=== PATIENT | female | born 1965 | race Caucasian/White ===

== ENCOUNTER → 2019-05-21 14:18 | Outpatient (BNVA) | payer MEDICARE, MEDICAID, SELFPAY | PROVIDERS: Family Provider Family Medicine; PCP Family Medicine; Visit Provider Anesthesiology | DX: M54.41 Lumbago with sciatica, right side (principal); Z79.891 Long term (current) use of opiate analgesic | CPT/HCPCS: 99213; 99214 ==

== ENCOUNTER → 2019-09-17 12:58 | Outpatient (BNVA) | payer MEDICARE, MEDICAID, SELFPAY | PROVIDERS: Family Provider Family Medicine; PCP Family Medicine; Visit Provider Anesthesiology | DX: M54.41 Lumbago with sciatica, right side (principal); M54.9 Dorsalgia, unspecified; Z79.891 Long term (current) use of opiate analgesic | CPT/HCPCS: 99213; 99214 ==

== ENCOUNTER → 2019-09-20 15:58 | Outpatient (BNVA) | payer MEDICARE, MEDICAID, SELFPAY | PROVIDERS: Family Provider Family Medicine; PCP Family Medicine; Visit Provider Family Medicine | DX: E11.9 Type 2 diabetes mellitus without complications (principal); I10 Essential (primary) hypertension; M54.41 Lumbago with sciatica, right side; K21.9 Gastro-esophageal reflux disease without esophagitis | CPT/HCPCS: 80053; 80061; 83036 ==

== ENCOUNTER → 2019-11-03 09:53 | Outpatient (BNVA) | payer MEDICARE, MEDICAID, SELFPAY | PROVIDERS: Family Provider Family Medicine; PCP Family Medicine; Visit Provider Nurse Practitioner | DX: M54.41 Lumbago with sciatica, right side (principal); M54.9 Dorsalgia, unspecified; Z79.891 Long term (current) use of opiate analgesic | CPT/HCPCS: 99213 ==

== ENCOUNTER 2019-12-30 13:23 | Outpatient (CLI) | payer MEDICARE, MEDICAID, SELFPAY ==
--- NOTE | 2019-12-30 13:30 | USCV_ITS ---
Gia Carvajal Age: 54 Gender: F : 1965 Exam Date: 12/30/2019 13:37 Ordering Phys: Cami Christie MD Technologist: Karson Rojas Exam Location: [facility] [place] Indication: Tachycardia BP: 135 / 80 HR: 112 Rhythm: Sinus Technical Quality: Fair MEASUREMENTS (Male / Female) Normal Values 2D ECHO LV Diastolic Diameter PLAX 3.7 cm 4.2 - 5.9 / 3.9 - 5.3 cm LV Systolic Diameter PLAX 2.0 cm IVS Diastolic Thickness 0.8 cm 0.6 - 1.0 / 0.6 - 0.9 cm IVS Systolic Thickness 1.4 cm LVPW Diastolic Thickness 0.8 cm 0.6 - 1.0 / 0.6 - 0.9 cm LVPW Systolic Thickness 1.1 cm LVOT Diameter 1.6 cm LV Ejection Fraction 2D Teich 77.2 % LV Ejection Fraction MOD 2C 63.1 % LV Ejection Fraction 2C AL 64.7 % LA Diameter 3.4 cm LA Width 3.1 cm LA Height 3.6 cm RA Width 2.6 cm RA Height 3.5 cm Aorta at Sinotubular Diameter 0.7 cm M-MODE LV Diastolic Diameter MM 3.5 cm 4.2 - 5.9 / 3.9 - 5.3 cm LV Systolic Diameter MM 2.0 cm LV Ejection Fraction MM Teich 74.0 % IVS Diastolic Thickness MM 1.1 cm 0.6 - 1.0 / 0.6 - 0.9 cm IVS Systolic Thickness MM 1.2 cm LVPW Diastolic Thickness MM 1.1 cm 0.6 - 1.0 / 0.6 - 0.9 cm LVPW Systolic Thickness MM 1.4 cm RV Diastolic Diameter MM 2.0 cm Aortic Annulus Diameter 2.3 cm LA Ao Ratio MM 1.5 MV E Point Septal Separation 0.5 cm DOPPLER AV Peak Velocity 193.0 cm/s LVOT Peak Velocity 149.0 cm/s AV Area Cont Eq vti 2.0 cm squared AV Area Cont Eq pk 1.6 cm squared MV Area PHT 5.0 cm squared Mitral E to A Ratio 0.7 MV E' Velocity 13.0 cm/s Mitral E to MV E' Ratio 7.0 Mitral E to LV E' Lateral Ratio 5.7 Mitral E to LV E' Septal Ratio 9.2 TR Peak Velocity 189.0 cm/s TR Peak Gradient 14.3 mmHg TV Peak E Velocity 87.0 cm/s Right Atrial Pressure 3.0 mmHg Pulmonary Artery Systolic Pressu 17.3 mmHg PV Peak Velocity 173.0 cm/s FINDINGS Left Ventricle Normal left ventricular size, systolic function and wall thickness, with no regional wall motion abnormalities. Left ventricular ejection fraction is estimated at 70-75 %. Normal diastolic function. Right Ventricle Right ventricle not well visualized. Normal right ventricular size and systolic function. Right Atrium Normal right atrial size. Right atrial pressure estimated at 3 mmHg. Left Atrium Normal left atrial size. Mitral Valve Structurally normal mitral valve. No mitral valve stenosis. Trace mitral valve regurgitation. Aortic Valve Aortic valve not well visualized. No aortic valve stenosis. No aortic valve regurgitation. Tricuspid Valve Tricuspid valve not well visualized. Trace tricuspid valve regurgitation. Pulmonic Valve Pulmonic valve not well visualized. Pericardium No pericardial effusion. Aorta Normal size aortic root and proximal ascending aorta. Normal- sized inferior vena cava. CONCLUSIONS 1. Normal left ventricular size, systolic function and wall thickness, with no regional wall motion abnormalities. Left ventricular ejection fraction is estimated at 70-75 %. Normal diastolic function. 2. Normal right ventricular size and systolic function. 3. Right atrial pressure estimated at 3 mmHg. 4. No significant valvular abnormality. 5. No prior similar studies to compare. Stephy Young MD (Electronically Signed) Final Date: 03 January 2020 12:20 S
== END 2019-12-30 13:24 | disposition home or self-care (01) ==
LOC: RAD 13:27
PROVIDERS: Family Provider Family Medicine; PCP Family Medicine; Visit Provider Family Medicine
DX: R06.02 Shortness of breath (principal); R01.1 Cardiac murmur, unspecified; R00.0 Tachycardia, unspecified; B27.00 Gammaherpesviral mononucleosis without complication
CPT/HCPCS: 93306

== ENCOUNTER → 2020-01-14 12:38 | Outpatient (BNVA) | payer MEDICARE, MEDICAID, SELFPAY | PROVIDERS: Family Provider Family Medicine; PCP Family Medicine; Visit Provider Nurse Practitioner | DX: M54.41 Lumbago with sciatica, right side (principal); M54.42 Lumbago with sciatica, left side; M54.9 Dorsalgia, unspecified; Z79.891 Long term (current) use of opiate analgesic | CPT/HCPCS: 99213 ==

== ENCOUNTER → 2020-02-11 13:11 | Outpatient (BNVA) | payer MEDICARE, MEDICAID, SELFPAY | PROVIDERS: Family Provider Family Medicine; PCP Family Medicine; Visit Provider Anesthesiology | DX: M54.41 Lumbago with sciatica, right side (principal); M54.9 Dorsalgia, unspecified; Z79.891 Long term (current) use of opiate analgesic | CPT/HCPCS: 99213; 99214 ==

== ENCOUNTER → 2020-04-11 13:11 | Outpatient (BNVA) | payer MEDICARE, MEDICAID, SELFPAY | PROVIDERS: Family Provider Family Medicine; PCP Family Medicine; Visit Provider Anesthesiology | DX: M54.9 Dorsalgia, unspecified (principal); Z79.891 Long term (current) use of opiate analgesic; M54.41 Lumbago with sciatica, right side; G89.29 Other chronic pain; Z79.1 Long term (current) use of non-steroidal anti-inflammatories (NSAID) | CPT/HCPCS: 99214 ==

== ENCOUNTER → 2020-05-17 13:25 | Outpatient (BNVA) | payer MEDICARE, MEDICAID, SELFPAY | PROVIDERS: Family Provider Family Medicine; PCP Family Medicine; Visit Provider Anesthesiology | DX: G89.29 Other chronic pain (principal); M54.41 Lumbago with sciatica, right side; M54.9 Dorsalgia, unspecified; Z79.891 Long term (current) use of opiate analgesic | CPT/HCPCS: 99213 ==

== ENCOUNTER → 2020-07-07 09:20 | Outpatient (BNVA) | payer MEDICARE, MEDICAID, SELFPAY | PROVIDERS: Family Provider Family Medicine; PCP Family Medicine; Visit Provider Nurse Practitioner | DX: G89.29 Other chronic pain (principal); M54.41 Lumbago with sciatica, right side; M54.9 Dorsalgia, unspecified; Z79.1 Long term (current) use of non-steroidal anti-inflammatories (NSAID); Z79.891 Long term (current) use of opiate analgesic | CPT/HCPCS: 99212 ==

== ENCOUNTER → 2020-07-10 13:56 | Outpatient (BNVA) | payer MEDICARE, MEDICAID, SELFPAY | PROVIDERS: Family Provider Family Medicine; PCP Family Medicine; Visit Provider Family Medicine | DX: R11.0 Nausea (principal); K21.9 Gastro-esophageal reflux disease without esophagitis; I10 Essential (primary) hypertension; E11.9 Type 2 diabetes mellitus without complications; J30.9 Allergic rhinitis, unspecified; M54.41 Lumbago with sciatica, right side; J44.9 Chronic obstructive pulmonary disease, unspecified; R00.0 Tachycardia, unspecified | CPT/HCPCS: 80053; 83036; 85025 ==

== ENCOUNTER → 2020-08-29 14:01 | Outpatient (BNVA) | payer MEDICARE, MEDICAID, SELFPAY | PROVIDERS: Family Provider Family Medicine; PCP Family Medicine; Visit Provider Nurse Practitioner | DX: G89.29 Other chronic pain (principal); M54.9 Dorsalgia, unspecified; M54.41 Lumbago with sciatica, right side; Z79.1 Long term (current) use of non-steroidal anti-inflammatories (NSAID); Z79.891 Long term (current) use of opiate analgesic | CPT/HCPCS: 99213 ==

== ENCOUNTER → 2020-10-10 18:00 | Outpatient (BNVA) | payer MEDICARE, MEDICAID, SELFPAY | PROVIDERS: Family Provider Family Medicine; PCP Family Medicine; Visit Provider Family Medicine | DX: E11.9 Type 2 diabetes mellitus without complications (principal); I10 Essential (primary) hypertension; J30.9 Allergic rhinitis, unspecified; R00.0 Tachycardia, unspecified; K21.9 Gastro-esophageal reflux disease without esophagitis; R11.0 Nausea; E78.5 Hyperlipidemia, unspecified; M54.41 Lumbago with sciatica, right side; J30.1 Allergic rhinitis due to pollen; R74.8 Abnormal levels of other serum enzymes; R53.82 Chronic fatigue, unspecified; E78.2 Mixed hyperlipidemia | CPT/HCPCS: 80053; 80061; 83036; 83721; 84443 ==

== ENCOUNTER → 2020-10-24 12:54 | Outpatient (BNVA) | payer MEDICARE, MEDICAID, SELFPAY | PROVIDERS: Family Provider Family Medicine; PCP Family Medicine; Visit Provider Nurse Practitioner | DX: G89.29 Other chronic pain (principal); M54.41 Lumbago with sciatica, right side; M54.9 Dorsalgia, unspecified; Z79.1 Long term (current) use of non-steroidal anti-inflammatories (NSAID); Z79.891 Long term (current) use of opiate analgesic; Z87.891 Personal history of nicotine dependence | CPT/HCPCS: 99213 ==

== ENCOUNTER → 2020-12-25 15:02 | Outpatient (BNVA) | payer MEDICARE, MEDICAID, SELFPAY | PROVIDERS: Family Provider Family Medicine; PCP Family Medicine; Visit Provider Family Medicine | DX: R11.0 Nausea (principal); I10 Essential (primary) hypertension; E03.9 Hypothyroidism, unspecified; R00.0 Tachycardia, unspecified | CPT/HCPCS: 80053; 83735; 84443 ==

== ENCOUNTER → 2021-01-02 12:54 | Outpatient (BNVA) | payer MEDICARE, MEDICAID, SELFPAY | PROVIDERS: Family Provider Family Medicine; PCP Family Medicine; Visit Provider Anesthesiology | DX: G89.29 Other chronic pain (principal); M54.41 Lumbago with sciatica, right side; Z79.1 Long term (current) use of non-steroidal anti-inflammatories (NSAID); Z79.891 Long term (current) use of opiate analgesic | CPT/HCPCS: 99213 ==

== ENCOUNTER → 2021-01-30 13:41 | Outpatient (BNVA) | payer MEDICARE, MEDICAID, SELFPAY | PROVIDERS: Family Provider Family Medicine; PCP Family Medicine; Visit Provider Family Medicine | DX: E11.9 Type 2 diabetes mellitus without complications (principal); I10 Essential (primary) hypertension; K21.9 Gastro-esophageal reflux disease without esophagitis; R11.0 Nausea; J30.9 Allergic rhinitis, unspecified; R00.0 Tachycardia, unspecified; I16.0 Hypertensive urgency; J30.1 Allergic rhinitis due to pollen; Z23 Encounter for immunization | CPT/HCPCS: 83036 ==

== ENCOUNTER → 2021-02-27 14:13 | Outpatient (BNVA) | payer MEDICARE, MEDICAID, SELFPAY | PROVIDERS: Family Provider Family Medicine; PCP Family Medicine; Visit Provider Anesthesiology | DX: G89.29 Other chronic pain (principal); M54.50 Low back pain, unspecified; Z79.891 Long term (current) use of opiate analgesic; Z79.1 Long term (current) use of non-steroidal anti-inflammatories (NSAID) | CPT/HCPCS: 99213 ==

== ENCOUNTER → 2021-04-24 15:02 | Outpatient (BNVA) | payer MEDICARE, MEDICAID, SELFPAY | PROVIDERS: Family Provider Family Medicine; PCP Family Medicine; Visit Provider Family Medicine | DX: E11.9 Type 2 diabetes mellitus without complications (principal); R00.0 Tachycardia, unspecified; I10 Essential (primary) hypertension; K92.1 Melena; Z12.11 Encounter for screening for malignant neoplasm of colon | CPT/HCPCS: 80053; 83036 ==

== ENCOUNTER → 2021-05-04 12:37 | Outpatient (BNVA) | payer MEDICARE, MEDICAID, SELFPAY | PROVIDERS: Family Provider Family Medicine; PCP Family Medicine; Visit Provider Anesthesiology | DX: G89.29 Other chronic pain (principal); M54.41 Lumbago with sciatica, right side; Z79.891 Long term (current) use of opiate analgesic; Z79.1 Long term (current) use of non-steroidal anti-inflammatories (NSAID); Z87.891 Personal history of nicotine dependence | CPT/HCPCS: 99213 ==

== ENCOUNTER → 2021-07-05 15:32 | Outpatient (BNVA) | payer MEDICARE, MEDICAID, SELFPAY | PROVIDERS: Family Provider Family Medicine; PCP Family Medicine; Visit Provider Registered Nurse | DX: Z79.899 Other long term (current) drug therapy (principal) | CPT/HCPCS: 80061; 82306; 82607; 83721; 85025 ==

== ENCOUNTER → 2021-07-23 13:41 | Outpatient (BNVA) | payer MEDICARE, MEDICAID, SELFPAY | PROVIDERS: Family Provider Family Medicine; PCP Family Medicine; Visit Provider Family Medicine | DX: E11.9 Type 2 diabetes mellitus without complications (principal); M54.41 Lumbago with sciatica, right side; M54.9 Dorsalgia, unspecified; E55.9 Vitamin D deficiency, unspecified; G89.29 Other chronic pain; Z79.891 Long term (current) use of opiate analgesic; N18.1 Chronic kidney disease, stage 1; E78.2 Mixed hyperlipidemia | CPT/HCPCS: 80048; 83036 ==

== ENCOUNTER → 2021-10-23 14:06 | Outpatient (BNVA) | payer MEDICARE, MEDICAID, SELFPAY | PROVIDERS: Family Provider Family Medicine; PCP Family Medicine; Visit Provider Family Medicine | DX: M54.41 Lumbago with sciatica, right side (principal); E11.9 Type 2 diabetes mellitus without complications; R11.0 Nausea; K21.9 Gastro-esophageal reflux disease without esophagitis; R00.0 Tachycardia, unspecified; I10 Essential (primary) hypertension; J30.9 Allergic rhinitis, unspecified; M79.641 Pain in right hand; M79.642 Pain in left hand; F33.1 Major depressive disorder, recurrent, moderate; E78.2 Mixed hyperlipidemia | CPT/HCPCS: 80048; 83036 ==

== ENCOUNTER → 2022-01-23 14:31 | Outpatient (BNVA) | payer MEDICARE, MEDICAID, SELFPAY | PROVIDERS: Family Provider Family Medicine; PCP Family Medicine; Visit Provider Family Medicine | DX: M54.41 Lumbago with sciatica, right side (principal); E11.9 Type 2 diabetes mellitus without complications; J30.1 Allergic rhinitis due to pollen; I10 Essential (primary) hypertension; Z23 Encounter for immunization; M79.641 Pain in right hand; G89.29 Other chronic pain; M79.642 Pain in left hand | CPT/HCPCS: 83036 ==

== ENCOUNTER → 2022-06-11 14:28 | Outpatient (BNVA) | payer MEDICAID, OTHER, SELFPAY | PROVIDERS: Family Provider Family Medicine; PCP Family Medicine; Visit Provider Family Medicine | DX: E78.2 Mixed hyperlipidemia (principal); E11.9 Type 2 diabetes mellitus without complications; I10 Essential (primary) hypertension; R11.0 Nausea; K21.9 Gastro-esophageal reflux disease without esophagitis; R00.0 Tachycardia, unspecified; M54.41 Lumbago with sciatica, right side; J44.9 Chronic obstructive pulmonary disease, unspecified; J30.9 Allergic rhinitis, unspecified; J30.1 Allergic rhinitis due to pollen; G89.29 Other chronic pain; J20.9 Acute bronchitis, unspecified; J20.8 Acute bronchitis due to other specified organisms | CPT/HCPCS: 80048; 80061; 83036 ==

== ENCOUNTER → 2022-07-29 14:44 | Outpatient (BNVA) | payer OTHER, MEDICAID, SELFPAY | PROVIDERS: Family Provider Family Medicine; PCP Family Medicine; Visit Provider Family Medicine | DX: R30.0 Dysuria (principal) | CPT/HCPCS: 81000 ==

== ENCOUNTER → 2022-09-25 16:55 | Outpatient (BNVA) | payer OTHER, MEDICAID, SELFPAY | PROVIDERS: Family Provider Family Medicine; PCP Family Medicine; Visit Provider Registered Nurse | DX: F41.1 Generalized anxiety disorder (principal); F33.1 Major depressive disorder, recurrent, moderate; Z79.899 Other long term (current) drug therapy | CPT/HCPCS: 80053; 82306; 83036; 83540; 83735; 84443; 85025 ==

== ENCOUNTER → 2022-12-26 14:12 | Outpatient (BNVA) | payer OTHER, MEDICAID, SELFPAY | PROVIDERS: Family Provider Family Medicine; PCP Family Medicine; Visit Provider Family Medicine | DX: E11.9 Type 2 diabetes mellitus without complications; M25.50 Pain in unspecified joint | CPT/HCPCS: 80053; 83036; 85651; 86038; 86140 ==

== ENCOUNTER → 2023-04-01 13:55 | Outpatient (BNVA) | payer OTHER, MEDICAID, SELFPAY | PROVIDERS: Family Provider Family Medicine; PCP Family Medicine; Visit Provider Family Medicine | DX: M25.552 Pain in left hip (principal) | CPT/HCPCS: 73502 ==

== ENCOUNTER → 2023-06-18 11:38 | Outpatient (BNVA) | payer OTHER, MEDICAID, SELFPAY | PROVIDERS: Family Provider Family Medicine; PCP Family Medicine; Visit Provider Family Medicine | DX: E11.9 Type 2 diabetes mellitus without complications (principal); I10 Essential (primary) hypertension; J44.9 Chronic obstructive pulmonary disease, unspecified | CPT/HCPCS: 80053; 80061; 85025; 86140 ==

== ENCOUNTER → 2023-07-01 13:59 | Outpatient (BNVA) | payer OTHER, SELFPAY | PROVIDERS: Family Provider Family Medicine; PCP Family Medicine; Visit Provider Family Medicine | DX: E11.9 Type 2 diabetes mellitus without complications (principal); I10 Essential (primary) hypertension; J44.9 Chronic obstructive pulmonary disease, unspecified | CPT/HCPCS: 83036; 85025; 85651 ==

== ENCOUNTER → 2023-09-18 10:10 | Outpatient (BNVA) | payer MEDICARE, SELFPAY | PROVIDERS: Family Provider Family Medicine; PCP Family Medicine; Visit Provider Family Medicine | DX: E11.9 Type 2 diabetes mellitus without complications (principal); I10 Essential (primary) hypertension; E78.2 Mixed hyperlipidemia | CPT/HCPCS: 80053; 80061; 83036; 83721; 85007; 85027 ==

== ENCOUNTER 2023-10-02 14:55 | Outpatient (CLI) | payer MEDICARE, SELFPAY ==
--- NOTE | 2023-10-02 14:59 | XR_ITS ---
WS: [email or web address] Exam: XR hand LT min 3V* [id number] Date/Time of Exam: 10/02/2023 2:59 PM Reason For Exam: Z79.899 - Other alf (current) drug therapy Findings: No fractures, soft tissue swelling, or unusual calcifications are noted. The hand shows normal bony alignment. There is no irregularity of the bony architecture. XR/XR hand LT min 3V* [id number] IMPRESSION: Normal LEFT hand.
--- NOTE | 2023-10-02 14:59 | XR_ITS ---
WS: [email or web address] Exam: XR foot RT min 3V* [id number] Date/Time of Exam: 10/02/2023 2:59 PM Reason For Exam: Z79.899 - Other intermediate (current) drug therapy Findings: The foot was examined in multiple views and reveals no fractures or displacements of bone. No bony a nomalies are noted. The bony elements are in adequate alignment. The joint spaces are smooth and eq uidistant. XR/XR foot RT min 3V* [id number] IMPRESSION: Negative RIGHT foot.
--- NOTE | 2023-10-02 14:59 | XR_ITS ---
WS: [email or web address] Exam: XR knee RT 3V* [id number] Date/Time of Exam: 10/02/2023 2:59 PM Reason For Exam: Z79.899 - Other baster hand (current) drug therapy No fracture or dislocation. The joint compartments are preserved. Chondrocalcinosis of the medial and lateral menisci. XR/XR knee RT 3V* [id number] IMPRESSION: 1. Chondrocalcinosis. No other significant finding.
--- NOTE | 2023-10-02 14:59 | XR_ITS ---
WS: [email or web address] Exam: XR knee LT 3V* [id number] Date/Time of Exam: 10/02/2023 2:59 PM Reason For Exam: Z79.899 - Other terminal gauger (current) drug therapy No fracture or dislocation. The joint compartments are preserved. No joint effusion. Normal soft tiss ues. XR/XR knee LT 3V* [id number] IMPRESSION: 1. Negative LEFT knee.
--- NOTE | 2023-10-02 14:59 | XR_ITS ---
WS: [email or web address] Exam: XR hand RT min 3V* [id number] Date/Time of Exam: 10/02/2023 2:59 PM Reason For Exam: Z79.899 - Other m[facility]p (current) drug therapy Findings: No fractures, soft tissue swelling, or unusual calcifications are noted. The hand shows normal bony alignment. There is no irregularity of the bony architecture. XR/XR hand RT min 3V* [id number] IMPRESSION: Normal RIGHT hand.
--- NOTE | 2023-10-02 14:59 | XR_ITS ---
WS: [email or web address] Exam: XR foot LT min 3V* [id number] Date/Time of Exam: 10/02/2023 2:59 PM Reason For Exam: Z79.899 - Other snf (current) drug therapy No fracture or dislocation. Degenerative change and osteophyte formation at the articulation of the f irst metatarsal and first cuneiform. Normal soft tissues. The remainder of the LEFT foot is unremarka ble. XR/XR foot LT min 3V* [id number] IMPRESSION: 1. Degenerative changes at the first metatarsal cuneiform joint with osteophyte formation. No other significant finding.
[2023-10-02 16:00] LABS: Basophils % 0.5 %; Eosinophils # 0.2 10^3/uL (0.0-0.8); Eosinophils % 1.9 %; Hematocrit 36.5 % (36-47); Lymphocytes # 2.5 10^3/uL (0.8-4.8); Lymphocytes % 29.2 %; Mean Corpuscular HGB Conc 32.6 g/dL (30-55); Mean Corpuscular Hemoglobin 25.4 pg (27-33); Mean Corpuscular Volume 77.8 fl (85-98); Mean Platelet Volume 9.9 fL (7.4-10.4); Monocytes # 0.5 10^3/uL (0.2-0.9); Monocytes % 6.2 %; Neutrophils # 5.23 10^3/uL (1.8-7.7); Neutrophils % 61.4 %; Nucleated Red Blood Cells % 0 %; Platelet Count 183 10^3/cmm (157-399); Red Blood Count 4.69 10^6/uL (3.85-5.65); Red Cell Distribution Width 13.4 % (12.1-15.1); White Blood Count 8.52 10^3/uL (3.29-11.43)
[2023-10-02 16:04] LABS: Erythrocyte Sedimentation Rate 4 mm/hr (0-15)
[2023-10-02 16:45] LABS: Alanine Aminotransferase 29 U/L (0-33); Albumin Level 4.5 g/dL (3.5-5.2); Alkaline Phosphatase 117 U/L (35-105); Aspartate Amino Transferase 19 U/L (0-32); Globulin 2.7 g/dL (1.3-4.6); Glomerular Filtration Rate 57.1 mL/min (90-130); Total Bilirubin 0.2 mg/dL (0.15-1.2); Total Protein 7.2 g/dL (6.6-8.7)
[2023-10-02 16:48] LABS: 25 Hydroxy Vitamin D 17 ng/mL (30-100)
[2023-10-02 22:26] LABS: Hepatitis B Core AB, Total Non-Reactive (Nonreactive); Hepatitis B Surface Antigen Non-Reactive (Nonreactive); Hepatitis C Virus Antibody Non-Reactive (Nonreactive)
[2023-10-03 14:55] LABS: Cyclic Citrullinated Peptide <16 UNITS
[2023-10-03 23:16] LABS: HLA-B27 NEGATIVE (NEGATIVE)
[2023-10-04 11:59] LABS: Quantiferon Mitogen 8.85 IU/mL; Quantiferon Nil 0.02 IU/mL; Quantiferon TB Gold NEGATIVE (NEGATIVE)
[2023-10-08 22:30] LABS: ANCA Screen Negative (Negative); Myeloperoxidase Antibody <1.0 AI (<1.0)
== END 2023-10-02 14:56 | disposition home or self-care (01) ==
LOC: LAB 14:56
PROVIDERS: PCP Family Medicine; Visit Provider Internal Medicine Rheumatology
DX: Z79.899 Other long term (current) drug therapy (principal); Z11.1 Encounter for screening for respiratory tuberculosis; Z11.59 Encounter for screening for other viral diseases; M45.6 Ankylosing spondylitis lumbar region; M11.261 Other chondrocalcinosis, right knee; M19.072 Primary osteoarthritis, left ankle and foot; M25.78 Osteophyte, vertebrae
CPT/HCPCS: 36415; 73130; 73562; 73630; 80076; 82306; 82565; 85025; 85651; 86021; 86036; 86140; 86200; 86431; 86480; 86704; 86803; 86812; 87340

== ENCOUNTER 2023-11-14 14:53 | Outpatient (CLI) | payer MEDICARE, SELFPAY ==
[2023-11-14 15:28] LABS: Blood Urea Nitrogen 13 mg/dL (6-20); Glomerular Filtration Rate 64.5 mL/min (90-130)
[2023-11-19 13:13] LABS: ANCA Screen Negative (Negative)
== END 2023-11-14 14:54 | disposition home or self-care (01) ==
LOC: LAB 14:54
PROVIDERS: PCP Family Medicine; Visit Provider Internal Medicine Rheumatology
DX: R79.89 Other specified abnormal findings of blood chemistry (principal); Z79.899 Other long term (current) drug therapy
CPT/HCPCS: 82565; 84520; 86021; 86036

== ENCOUNTER 2024-02-04 11:24 | Outpatient (CLI) | payer MEDICARE, SELFPAY ==
[2024-02-04 12:17] LABS: Basophils % 0.4 %; Eosinophils # 0.1 10^3/uL (0.0-0.8); Eosinophils % 1.5 %; Hematocrit 37.2 % (36-47); Lymphocytes # 1.9 10^3/uL (0.8-4.8); Lymphocytes % 28.5 %; Mean Corpuscular HGB Conc 31.5 g/dL (30-55); Mean Corpuscular Hemoglobin 23.3 pg (27-33); Mean Corpuscular Volume 74.1 fl (85-98); Mean Platelet Volume 9.1 fL (7.4-10.4); Monocytes # 0.6 10^3/uL (0.2-0.9); Monocytes % 8.4 %; Neutrophils # 4.13 10^3/uL (1.8-7.7); Neutrophils % 60.8 %; Nucleated Red Blood Cells % 0 %; Platelet Count 225 10^3/cmm (157-399); Red Blood Count 5.02 10^6/uL (3.85-5.65); Red Cell Distribution Width 14.4 % (12.1-15.1)
[2024-02-04 12:26] LABS: Erythrocyte Sedimentation Rate 6 mm/hr (0-15)
[2024-02-04 12:42] LABS: Alanine Aminotransferase 35 U/L (0-33); Albumin Level 4.5 g/dL (3.5-5.2); Alkaline Phosphatase 148 U/L (35-105); Aspartate Amino Transferase 30 U/L (0-32); Globulin 2.6 g/dL (1.3-4.6); Glomerular Filtration Rate 73.9 mL/min (90-130); Total Bilirubin 0.3 mg/dL (0.15-1.2); Total Protein 7.1 g/dL (6.6-8.7)
== END 2024-02-04 11:25 | disposition home or self-care (01) ==
LOC: LAB 11:26
PROVIDERS: PCP Family Medicine; Visit Provider Internal Medicine Rheumatology
DX: Z79.899 Other long term (current) drug therapy (principal)
CPT/HCPCS: 36415; 80076; 82565; 85025; 85651; 86140

== ENCOUNTER → 2024-03-31 09:17 | Outpatient (BNVA) | payer MEDICARE, SELFPAY | PROVIDERS: Family Provider Family Medicine; PCP Family Medicine; Visit Provider Family Medicine | DX: I10 Essential (primary) hypertension (principal); E11.9 Type 2 diabetes mellitus without complications; M62.81 Muscle weakness (generalized) | CPT/HCPCS: 80048; 83036; 83735 ==

== ENCOUNTER → 2024-07-08 13:23 | Outpatient (BNVA) | payer MEDICARE, SELFPAY | PROVIDERS: Family Provider Family Medicine; PCP Family Medicine; Visit Provider Family Medicine | DX: E11.9 Type 2 diabetes mellitus without complications (principal) | CPT/HCPCS: 80048; 83036 ==

== ENCOUNTER → 2024-09-29 11:41 | Outpatient (BNVA) | payer MEDICARE, SELFPAY | PROVIDERS: Family Provider Family Medicine; PCP Family Medicine; Visit Provider Family Medicine | DX: I10 Essential (primary) hypertension (principal); E87.1 Hypo-osmolality and hyponatremia; E78.2 Mixed hyperlipidemia; E11.9 Type 2 diabetes mellitus without complications; A09 Infectious gastroenteritis and colitis, unspecified | CPT/HCPCS: 80048; 80061; 83036; 83690; 83735 ==

== ENCOUNTER → 2024-10-20 15:15 | Outpatient (BNVA) | payer MEDICARE, SELFPAY | PROVIDERS: Family Provider Family Medicine; PCP Family Medicine; Visit Provider Family Medicine | DX: I10 Essential (primary) hypertension (principal); R30.0 Dysuria | CPT/HCPCS: 80048 ==

== ENCOUNTER → 2025-01-06 09:34 | Outpatient (BNVA) | payer MEDICARE, SELFPAY | PROVIDERS: Family Provider Family Medicine; PCP Family Medicine; Visit Provider Family Medicine | DX: E11.9 Type 2 diabetes mellitus without complications (principal); I10 Essential (primary) hypertension; R30.0 Dysuria | CPT/HCPCS: 80053; 83036; 85025 ==